=== PATIENT | female | born 1995 | race Caucasian/White ===

== ENCOUNTER → 2016-04-09 | Outpatient (REF) | payer OTHER ==
[~2016-04-09] MED LIST: ACET50TAOT PO; CLEO300C2 PO; IBUP-1114 PO; IBUPOTC PO; KEFL500C7 PO; PERC5TAB6 PO; PRENTAB40 PO
== END ==
LOC: M SFHCLERA 18:59
PROVIDERS: ATTEND Physician Assistant
DX: N10 Acute pyelonephritis (principal)

== ENCOUNTER 2016-04-10 20:54 | Emergency (ER) | payer OTHER ==
[2016-04-10] MEDS ORDERED: MORPHINE 2 MG/ML 1ML SYRINGE As Ordered ONE (22:47)
[2016-04-10 23:01] LABS: BASO # 0.1 K/mm3 (0.0-0.2); BASO % 1.6 % (0.0-1.0); EOS # 0.2 K/mm3 (0.0-0.50); EOS % 2.7 % (0.0-3.0); LARGE UNSTAINED CELL # 0.2 K/mm3 (0.0-0.4); LARGE UNSTAINED CELL % 2.5 % (0.0-4.0); LYMPH # 2.5 K/mm3 (1.5-6.5); LYMPH % 32.3 % (24.0-44.0); MEAN CORPUSCULAR HEMOGLOBIN 25.1 pg (27.0-33.0); MEAN CORPUSCULAR HGB CONC 32.9 g/dl (32.0-36.5); MEAN CORPUSCULAR VOLUME 76.3 fl (80.0-96.0); MONO # 0.4 K/mm3 (0.0-0.8); MONO % 5.6 % (0.0-5.0); NEUTROPHILS % 55.3 % (36.0-66.0); PLATELET COUNT, AUTOMATED 195 k/mm3 (150-450); RED CELL DISTRIBUTION WIDTH 15.7 % (11.5-14.5); WHITE BLOOD COUNT 7.3 K/mm3 (4.0-10.0)
[2016-04-10 23:18] LABS: ANION GAP 8 MEQ/L (8-16); BLOOD UREA NITROGEN 17 MG/DL (7-18); CALCIUM LEVEL 8.7 MG/DL (8.5-10.1); CARBON DIOXIDE LEVEL 26 MEQ/L (21-32); CHLORIDE LEVEL 106 MEQ/L (98-107); CREATININE FOR GFR 0.65 MG/DL (0.55-1.02); GLOMERULAR FILTRATION RATE > 60.0 (>60); GLUCOSE, FASTING 89 MG/DL (70-105); POTASSIUM SERUM 4.3 MEQ/L (3.5-5.1); SODIUM LEVEL 140 MEQ/L (136-145)
[2016-04-10] MEDS ORDERED: KETOROLAC 30 MG/ML VIAL (J1885) As Ordered ONE (23:34)
--- NOTE | 2016-04-11 00:20 | REPUSA ---
CLINICAL HISTORY: Abdominal pain. TECHNIQUE: Multiple axial, sagittal and coronal CT images were obtained through the abdomen and pelvi s without administration of oral or IV contrast material. COMMENTS: The liver is of uniform attenuation without mass or defect. There is no intra or extrahepatic biliary ductal dilatation. The spleen is normal. The gallbladder is within normal limits. The pancreas is of normal contour and attenuation characteristics. There is no evidence of adrenal mass. The kidneys are normal in size, shape and configuration. No renal or ureteral calculi are identified. There is no hydroureter or hydronephrosis. There is no evidence for appendicitis. There is no bowel wall thickening. No evidence for small or la rge bowel obstruction. There is no evidence of abdominal ascites or lymphadenopathy. There is no evidence of intrinsic or extrinsic bladder mass. There is small amount of free pelvic flu id.. Moderate large fecal stasis. Images of the lung bases show no evidence of pleural or parenchymal mass. There are no pleural effusi ons. Small consolidation in the posterior basal segment of the right lower lobe. The bony structures are free of lytic or blastic lesions. Multilevel degenerative changes are seen in volving the thoracolumbar spine. IMPRESSION: Large bowel fecal stasis. Small amount of free fluid in the pelvis. Consolidation in the posterior basal segment of the right lower lobe. Please assess clinically to exc lude mild changes of pneumonia. Thank you for your kind referral of this patient.
[2016-04-11] MEDS ORDERED: CYCLOBENZAPRINE 10 MG TAB As Ordered ONE (00:53)
--- NOTE | 2016-04-11 01:03 | EDDOCDS ---
Physician Documentation [facility] Name: Jane Ann Age: 20 yrs Sex: Female : 1995 Arrival Date: 04/10/2016 Time: 20:54 Bed I7 / 29 Private MD: NO PRIMARY PHYSICIAN, . Disposition: 04/11/16 00:36 Discharged to Home/Self Care. Impression: Lumbago with sciatica, right side, Pneumonia, unspecified organism - possible, right lower lung. - Condition is Stable. - Discharge Instructions: Lumbosacral Radiculopathy, Pneumonia, Adult. - Prescriptions for Cyclobenzaprine 10 mg Oral Tablet - take 1 tablet by ORAL route At bedtime As needed; 10 tablet. ketorolac 10 mg Oral Tablet - take 1 tablet by ORAL route every 6 hours As needed MDD- 40mg. Up to 5 days total use.; 16 tablet. Zithromax Z- Edward 250 mg Oral Tablet - take 1 tablet by ORAL route as directed for 5 days Day 1- take two tablets once. Day 2, 3, 4 , 5 take one tablet once daily.; 6 tablet. - Medication Reconciliation, Local Pharmacy Hours form. - Follow up: Lexis Bullard MD; When: As previously arranged; Reason: Recheck today's complaints, Continuance of care. Follow up: Emergency Department; When: As needed; Reason: Worsening of conditions. - Problem is new. - Symptoms have improved. Historical: - Allergies: Doxycycline; Keflex; Vancomycin; PENICILLINS; - Home Meds: 1. Cipro 250 mg Oral tab 1 tab every 12 hours 2. naproxen 375 mg Oral tab 1 tab 2 times per day 3. Motrin 800mg Oral tab 2 tabs every 6 hours 4. Tylenol 500mg Oral 2 tabs - PMHx: mastitis; - PSHx: ; Tonsillectomy; - Social history: Smoking status: Patient states was never smoker of tobacco. No barriers to communication noted, The patient speaks fluent Thai. - Family history: Not pertinent. - : The pt / caregiver states he / she is not on anticoagulants. Home medication list is obtained from the patient. - Exposure Risk Screening:: None identified. HEAD SAMPLER: 04/10 21:12 2, Living 2, LMP 03/21/2016 [facility] Vital Signs: 20:56 BP 117 / 6; Pulse 73; Resp 18; Temp 97.8; Pulse Ox 100% ; Weight 56.7 kg / 125 lbs; elp Height 5 ft. 2 in. (157.48 cm); Pain 8/10; 22:58 BP 102 / 63; Pulse 64; Resp 16; Temp 98.0(O); Pulse Ox 98% on R/A; Pain 3/10; cp1 04/11 00:45 BP 102 / 56 RA Sitting (auto/reg); Pulse 58 MON; Resp 18 S; Temp 96.9(O); Pulse Ox 98% cln on R/A; Pain 6/10; 04/10 20:56 Body Mass Index 22.86 (56.70 kg, 157.48 cm) elp MDM: 04/10 22:30 IV Saline Lock ordered. ar2 22:30 UCG by Nursing ordered. ar2 22:30 Vital Signs ordered. ar2 22:32 CBC with Diff Ordered. EDMS 22:32 MED Profile Ordered. EDMS 22:32 UA Ordered. EDMS 22:32 Urine Culture Ordered. EDMS 23:11 CBC with Diff Reviewed. ar2 23:11 UA Reviewed. ar2 23:13 ketorolac 15 mg IVP once ordered. ar2 23:14 CT ABD & PELVIS: No Contrast Ordered. EDMS 23:22 MED Profile Reviewed. ar2 04/11 00:39 Cyclobenzaprine 10 mg PO once; disp home with patient ordered. ar2 00:50 Financial registration complete. ks16 00:58 [facility] Payment Agreement was scanned into Wowo and attached to record. gjb Point of Care Testing: Urine : 04/10 22:58 hCG Reading: Negative; Control Reading: Positive; cp1 Ranges: Administered Medications: 22:55 CANCELLED (Patient Refused): morphine 2 mg IVP once ar2 23:37 Drug: ketorolac 15 mg [ketorolac 30 mg/mL (1 mL) injection solution (0.5 mL)] Route: kmg1 IVP; Site: right antecubital; 04/11 01:00 Drug: Cyclobenzaprine 10 mg [cyclobenzaprine 10 mg tablet (1 tabs)] Route: PO; jo3 Signatures: Dispatcher MedHost EDMS Calvillo, Evelyn, RN Guerline Nelson mcp, RN RN jo3 Robertshaw, Aaron, PAZiggy PA-C ar2 Valencia Nelson Kimberly, Reg Reg ks16 Jaz Smith RN kmg1 The chart was reviewed and I authenticate all verbal orders and agree with the evaluation and treatment provided.Corrections: (The following items were deleted from the chart) 04/10 22:55 22:31 morphine 2 mg IVP once ordered. ar2 ar2 22:55 morphine 2 mg IVP once ordered. ar2 ar2 Attachments: 04/11 00:58 [facility] Payment Agreement gloria MTDD
--- NOTE | 2016-04-11 01:03 | EDDOCDS ---
Nurse's Notes [facility] Name: Jane Ann Age: 20 yrs Sex: Female : 1995 Arrival Date: 04/10/2016 Time: 20:54 Bed I7 / 29 Private MD: NO PRIMARY PHYSICIAN, . Diagnosis: Lumbago with sciatica, right side;Pneumonia, unspecified organism-possible, right lower lung Presentation: 04/10 21:09 Presenting complaint: Patient states: Went to Urgent Care yesterday and diagnosed with mcp kidney infection. Placed on Cipro and pain not getting better. Acute neurological deficits are not present. Mechanism of Injury: No Mechanism of Injury. Adult Sepsis Screening: The patient does not have new or worsening altered mentation. Patient's respiratory rate is less than 22. Systolic blood pressure is greater than 100. Patient has a qSOFA score of 0- Negative Sepsis Screen. Suicide/Homicide risk assessment- the patient denies having any suicidal and/or homicidal ideations and does not present with any other emotional, behavioral or mental health complaints. Status: The patient is a dependent. Transition of care: patient was not received from another setting of care. 21:09 Acuity: ASTRID Level 3 [facility] 21:09 Method Of Arrival: Walkin/Carried/Asstd [facility] Triage Assessment: 21:12 General: Appears uncomfortable, Behavior is cooperative. Pain: Location: back Pain mcp currently is 8 out of 10 on a pain scale. HIV screening NA for this visit Offered previously. Neurological: No deficits noted. Respiratory: Airway is patent Respiratory effort is even, unlabored. : Reports pain in bilateral flank(s). Derm: Skin is pink, warm & dry. Musculoskeletal: Circulation, motion, and sensation intact. UX SPECIALIST: 21:12 2, Living 2, LMP 03/21/2016 [facility] Historical: - Allergies: Doxycycline; Keflex; Vancomycin; PENICILLINS; - Home Meds: 1. Cipro 250 mg Oral tab 1 tab every 12 hours 2. naproxen 375 mg Oral tab 1 tab 2 times per day 3. Motrin 800mg Oral tab 2 tabs every 6 hours 4. Tylenol 500mg Oral 2 tabs - PMHx: mastitis; - PSHx: ; Tonsillectomy; - Social history: Smoking status: Patient states was never smoker of tobacco. No barriers to communication noted, The patient speaks fluent Macedonian. - Family history: Not pertinent. - : The pt / caregiver states he / she is not on anticoagulants. Home medication list is obtained from the patient. - Exposure Risk Screening:: None identified. Screenin/08 01:00 Screening information is obtained from the patient. Fall risk: No risks identified. jo3 Assistance ADL's: requires no assistance with activities of daily living. Abuse/DV Screen: The patient / caregiver reports he/she is: not in a situation that causes fear, pain or injury. Nutritional screening: No deficits noted. Advance Directives: There is no active DNR order. home support is adequate. Assessment: 04/10 23:00 General: Appears uncomfortable, Behavior is anxious, crying. Neurological: Level of jo3 Consciousness is awake, alert, Oriented to person, place, time. Cardiovascular: No deficits noted. Respiratory: Airway is patent Respiratory effort is even, unlabored. : Reports pain in right flank(s). Derm: Skin is pink, warm & dry. 04/11 00:05 Reassessment: Patient appears in no apparent distress at this time. Patient states jo3 feeling better. Patient states symptoms have improved. Pt reports slight improvement at this time. Awaiting results at this time. Aware of plan of care . 00:41 General: Appears in no apparent distress, comfortable, Behavior is appropriate for age, jo3 cooperative. General:. Neurological: Level of Consciousness is awake, alert. Respiratory: Airway is patent Respiratory effort is even, unlabored. Derm: Skin is pink, warm & dry. Vital Signs: 04/10 20:56 BP 117 / 6; Pulse 73; Resp 18; Temp 97.8; Pulse Ox 100% ; Weight 56.7 kg; Height 5 ft. elp 2 in. (157.48 cm); Pain 8/10; 22:58 BP 102 / 63; Pulse 64; Resp 16; Temp 98.0(O); Pulse Ox 98% on R/A; Pain 3/10; cp1 04/11 00:45 BP 102 / 56 RA Sitting (auto/reg); Pulse 58 MON; Resp 18 S; Temp 96.9(O); Pulse Ox 98% cln on R/A; Pain 6/10; 04/10 20:56 Body Mass Index 22.86 (56.70 kg, 157.48 cm) elp Vitals: 04/10 20:56 Log In Time: April 10, 2016 at 20:54. elp ED Course: 20:55 Patient visited by Sierra Rodriguez PCA. elp 20:55 NO PRIMARY PHYSICIAN, . is Private Physician. elp 20:55 Patient moved to Waiting elp 20:56 Patient visited by Sierra Rodriguez PCA. elp 20:56 Patient moved to Pre RCE elp 21:10 Triage Initiated mcp 21:13 Patient visited by Evelyn Calvillo RN. mcp 21:53 Patient moved to Triage 2 mcp 22:02 [facility] ar2 22:03 Santos Parker DO is Attending Physician. ar2 22:20 Patient visited by Bandar Alexander PA-C. ar2 22:32 Patient moved to I7 cz 22:56 Patient visited by Indira Diaz LPN. cp1 22:56 Urine Culture Sent. cp1 22:56 UA Sent. cp1 22:56 MED Profile Sent. cp1 22:57 CBC with Diff Sent. cp1 22:57 Inserted saline lock: 20 gauge in right antecubital area and blood collected. The cp1 patient tolerated the procedure well. 23:19 Patient visited by Guerline Macias RN. jo3 04/11 00:21 CT ABD & PELVIS: No Contrast Returned. EDMS 00:31 Patient visited by Indira Diaz LPN. cp1 00:36 Lexis Bullard MD is Referral Physician. ar2 00:40 Patient visited by Guerline Macias RN. jo3 00:46 Patient visited by Beata Bunch PCA. cln 00:58 [facility] Payment Agreement was scanned into Qu[employer] and attached to record. gjb 01:00 The patient / caregiver is instructed regarding the plan of care and ED course. jo3 01:00 Discontinued IV lock intact, bleeding controlled, pressure dressing applied, No jo3 redness/swelling at site. No procedures done that require assistance. Administered Medications: 04/10 22:55 CANCELLED (Patient Refused): morphine 2 mg IVP once ar2 23:37 Drug: ketorolac 15 mg [ketorolac 30 mg/mL (1 mL) injection solution (0.5 mL)] Route: kmg1 IVP; Site: right antecubital; 04/11 01:00 Drug: Cyclobenzaprine 10 mg [cyclobenzaprine 10 mg tablet (1 tabs)] Route: PO; jo3 Point of Care Testing: Urine : 04/10 22:58 hCG Reading: Negative; Control Reading: Positive; cp1 Ranges: Order Results: Lab Order: CBC with Diff; SPEC'M 04/10/16 22:47 Test: WHITE BLOOD COUNT; Value: 7.3; Range: 4.0-10.0; Units: K/mm3; Status: F Test: RED BLOOD COUNT; Value: 4.47; Range: 4.00-5.40; Units: M/mm3; Status: F Test: HEMOGLOBIN; Value: 11.2; Range: 12.0-16.0; Abnormal: Below low normal; Units: g/dl; Status: F Test: HEMATOCRIT; Value: 34.1; Range: 36.0-47.0; Abnormal: Below low normal; Units: %; Status: F Test: MEAN CORPUSCULAR VOLUME; Value: 76.3; Range: 80.0-96.0; Abnormal: Below low normal; Units: fl; Status: F Test: MEAN CORPUSCULAR HEMOGLOBIN; Value: 25.1; Range: 27.0-33.0; Abnormal: Below low normal; Units: pg; Status: F Test: MEAN CORPUSCULAR HGB CONC; Value: 32.9; Range: 32.0-36.5; Units: g/dl; Status: F Test: RED CELL DISTRIBUTION WIDTH; Value: 15.7; Range: 11.5-14.5; Abnormal: Above high normal; Units: %; Status: F Test: PLATELET COUNT, AUTOMATED; Value: 195; Range: 150-450; Units: k/mm3; Status: F Test: NEUTROPHILS %; Value: 55.3; Range: 36.0-66.0; Units: %; Status: F Test: LYMPH %; Value: 32.3; Range: 24.0-44.0; Units: %; Status: F Test: MONO %; Value: 5.6; Range: 0.0-5.0; Abnormal: Above high normal; Units: %; Status: F Test: EOS %; Value: 2.7; Range: 0.0-3.0; Units: %; Status: F Test: BASO %; Value: 1.6; Range: 0.0-1.0; Abnormal: Above high normal; Units: %; Status: F Test: LARGE UNSTAINED CELL %; Value: 2.5; Range: 0.0-4.0; Units: %; Status: F Test: NEUTROPHILS #; Value: 4.0; Range: 1.8-7.7; Units: K/mm3; Status: F Test: LYMPH #; Value: 2.5; Range: 1.5-6.5; Units: K/mm3; Status: F Test: MONO #; Value: 0.4; Range: 0.0-0.8; Units: K/mm3; Status: F Test: EOS #; Value: 0.2; Range: 0.0-0.50; Units: K/mm3; Status: F Test: BASO #; Value: 0.1; Range: 0.0-0.2; Units: K/mm3; Status: F Test: LARGE UNSTAINED CELL #; Value: 0.2; Range: 0.0-0.4; Units: K/mm3; Status: F Lab Order: [facility]; SPEC'M 04/10/16 22:47 Test: GLUCOSE, FASTING; Value: 89; Range: 70-105; Units: MG/DL; Status: F Test: BLOOD UREA NITROGEN; Value: 17; Range: 7-18; Units: MG/DL; Status: F Test: CREATININE FOR GFR; Value: 0.65; Range: 0.55-1.02; Units: MG/DL; Status: F Test: GLOMERULAR FILTRATION RATE; Value: > 60.0; Range: >60; Status: F Test: SODIUM LEVEL; Value: 140; Range: 136-145; Units: MEQ/L; Status: F Test: POTASSIUM SERUM; Value: 4.3; Range: 3.5-5.1; Units: MEQ/L; Status: F Test: CHLORIDE LEVEL; Value: 106; Range: 98-107; Units: MEQ/L; Status: F Test: CARBON DIOXIDE LEVEL; Value: 26; Range: 21-32; Units: MEQ/L; Status: F Test: ANION GAP; Value: 8; Range: 8-16; Units: MEQ/L; Status: F Test: CALCIUM LEVEL; Value: 8.7; Range: 8.5-10.1; Units: MG/DL; Status: F Test Note: ; Units are mL/min/1.73 m2 Chronic Kidney Disease Staging per NKF: Stage I & II GFR >=60 Normal to Mildly Decreased Stage III GFR 30-59 Moderately Decreased Stage IV GFR 15-29 Severely Decreased Stage V GFR <15 Very Little GFR Left ESRD GFR <15 on SHORE WORKER Lab Order: UA; SPEC'M 04/10/16 22:48 Test: APPEARANCE, URINE; Value: CLOUDY; Range: CLEAR; Abnormal: Above high normal; Status: F Test: COLOR, URINE; Value: YELLOW; Range: YELLOW; Status: F Test: PH,URINE; Value: 7.0; Range: 5.0-9.0; Units: UNITS; Status: F Test: SPECIFIC GRAVITY URINE AUTO; Value: 1.020; Range: 1.002-1.035; Status: F Test: PROTEIN, URINE AUTO; Value: NEGATIVE; Range: NEGATIVE; Units: mg/dL; Status: F Test: GLUCOSE, URINE (UA) AUTO; Value: NEGATIVE; Range: NEGATIVE; Units: mg/dL; Status: F Test: KETONE, URINE AUTO; Value: NEGATIVE; Range: NEGATIVE; Units: mg/dL; Status: F Test: UROBILINOGEN, URINE AUTO; Value: 0.2; Range: 0.0-2.0; Units: mg/dL; Status: F Test: BILIRUBIN, URINE AUTO; Value: NEGATIVE; Range: NEGATIVE; Status: F Test: NITRITE, URINE AUTO; Value: NEGATIVE; Range: NEGATIVE; Status: F Test: LEUKOCYTE ESTERASE, URINE AUTO; Value: NEGATIVE; Range: NEGATIVE; Status: F Test: BLOOD, URINE BLOOD; Value: NEGATIVE; Range: NEGATIVE; Status: F Test: WBC, URINE AUTO; Value: 0; Range: 0-3; Units: /HPF; Status: F Test: RBC, URINE AUTO; Value: 0; Range: 0-3; Units: /HPF; Status: F Test: BACTERIA, URINE AUTO; Value: NEGATIVE; Range: NEGATIVE; Status: F Test: SQUAMOUS EPITHELIAL CELL UR AU; Value: 4; Range: 0-6; Units: /HPF; Status: F Test: HYALINE CAST, URINE AUTO; Value: 0; Range: 0-1; Units: /LPF; Status: F Test: AMORPHOUS SEDIMENT; Value: SMALL; Range: NEGATIVE; Abnormal: Above high normal; Status: F Radiology Order: CT ABD & PELVIS: No Contrast Test: CT ABD & PELVIS: No Contrast REASON FOR EXAMINATION: right flank/low back pain; ; CLINICAL HISTORY: Abdominal pain.; TECHNIQUE: Multiple axial, sagittal and coronal CT images were obtained through the abdomen and pelvi; s without administration of oral or IV contrast material.; COMMENTS:; The liver is of uniform attenuation without mass or defect. There is no intra or extrahepatic biliary; ductal dilatation. The spleen is normal. The gallbladder is within normal limits. The pancreas is of; normal contour and attenuation characteristics. There is no evidence of adrenal mass.; The kidneys are normal in size, shape and configuration. No renal or ureteral calculi are identified.; There is no hydroureter or hydronephrosis.; There is no evidence for appendicitis. There is no bowel wall thickening. No evidence for small or la; rge bowel obstruction. There is no evidence of abdominal ascites or lymphadenopathy.; There is no evidence of intrinsic or extrinsic bladder mass. There is small amount of free pelvic flu; id..; Moderate large fecal stasis.; Images of the lung bases show no evidence of pleural or parenchymal mass. There are no pleural effusi; ons. Small consolidation in the posterior basal segment of the right lower lobe.; The bony structures are free of lytic or blastic lesions. Multilevel degenerative changes are seen in; volving the thoracolumbar spine.; IMPRESSION:; Large bowel fecal stasis.; Small amount of free fluid in the pelvis.; Consolidation in the posterior basal segment of the right lower lobe. Please assess clinically to exc; lude mild changes of pneumonia.; Thank you for your kind referral of this patient.; ; Outcome: 04/11 00:36 Discharge ordered by Provider. ar2 01:00 Discharge Assessment: Patient awake, alert and oriented x 3. No cognitive and/or jo3 functional deficits noted. Patient verbalized understanding of disposition instructions. patient administered narcotics - no. The following High Risk Discharge criteria are identified: None. Discharged to home ambulatory. Condition: stable Condition: improved. Instructed on discharge instructions, follow up and referral plans. medication usage, Demonstrated understanding of instructions, medications, Pt was receptive of discharge instructions/ teaching. Prescriptions given X 3. Property sent home with patient. 01:02 CT Study completed. jo3 01:02 Patient left the ED. jo3 Signatures: Dispatcher MedHost EDMS Jaz Smith RN RN kmg1 Evelyn Calvillo RN RN Ryan Hair RN RN cz Helmerci, Jennifer, RN RN jo3 Bandar Alexander, PA-C PA-Bart ar2 Indira Diaz,CIRCUIT TESTER CIRCUIT TESTER cp1 Seirra Rodriguez, BORING INSPECTOR BORING INSPECTOR Valencia Koehler Crystal, BORING INSPECTOR BORING INSPECTOR cln MTDBrittni
--- NOTE | 2016-04-13 12:14 | EDDOCDS ---
Physician Documentation [facility] Name: Jane Ann Age: 20 yrs Sex: Female : 1995 Arrival Date: 04/10/2016 Time: 20:54 Bed I7 / 29 Private MD: NO PRIMARY PHYSICIAN, . Disposition: 04/11/16 00:36 Discharged to Home/Self Care. Impression: Lumbago with sciatica, right side, Pneumonia, unspecified organism - possible, right lower lung. - Condition is Stable. - Discharge Instructions: Lumbosacral Radiculopathy, Pneumonia, Adult. - Prescriptions for Cyclobenzaprine 10 mg Oral Tablet - take 1 tablet by ORAL route At bedtime As needed; 10 tablet. ketorolac 10 mg Oral Tablet - take 1 tablet by ORAL route every 6 hours As needed MDD- 40mg. Up to 5 days total use.; 16 tablet. Zithromax Z- Edward 250 mg Oral Tablet - take 1 tablet by ORAL route as directed for 5 days Day 1- take two tablets once. Day 2, 3, 4 , 5 take one tablet once daily.; 6 tablet. - Medication Reconciliation, Local Pharmacy Hours form. - Follow up: Lexis Bullard MD; When: As previously arranged; Reason: Recheck today's complaints, Continuance of care. Follow up: Emergency Department; When: As needed; Reason: Worsening of conditions. - Problem is new. - Symptoms have improved. Historical: - Allergies: Doxycycline; Keflex; Vancomycin; PENICILLINS; - Home Meds: 1. Cipro 250 mg Oral tab 1 tab every 12 hours 2. naproxen 375 mg Oral tab 1 tab 2 times per day 3. Motrin 800mg Oral tab 2 tabs every 6 hours 4. Tylenol 500mg Oral 2 tabs - PMHx: mastitis; - PSHx: ; Tonsillectomy; - Social history: Smoking status: Patient states was never smoker of tobacco. No barriers to communication noted, The patient speaks fluent Indonesian. - Family history: Not pertinent. - : The pt / caregiver states he / she is not on anticoagulants. Home medication list is obtained from the patient. - Exposure Risk Screening:: None identified. DOBIE MAN: 04/10 21:12 2, Living 2, LMP 03/21/2016 [facility] Vital Signs: 20:56 BP 117 / 6; Pulse 73; Resp 18; Temp 97.8; Pulse Ox 100% ; Weight 56.7 kg / 125 lbs; elp Height 5 ft. 2 in. (157.48 cm); Pain 8/10; 22:58 BP 102 / 63; Pulse 64; Resp 16; Temp 98.0(O); Pulse Ox 98% on R/A; Pain 3/10; cp1 04/11 00:45 BP 102 / 56 RA Sitting (auto/reg); Pulse 58 MON; Resp 18 S; Temp 96.9(O); Pulse Ox 98% cln on R/A; Pain 6/10; 04/10 20:56 Body Mass Index 22.86 (56.70 kg, 157.48 cm) elp MDM: 04/10 22:30 IV Saline Lock ordered. ar2 22:30 UCG by Nursing ordered. ar2 22:30 Vital Signs ordered. ar2 22:32 CBC with Diff Ordered. EDMS 22:32 MED Profile Ordered. EDMS 22:32 UA Ordered. EDMS 22:32 Urine Culture Ordered. EDMS 23:11 CBC with Diff Reviewed. ar2 23:11 UA Reviewed. ar2 23:13 ketorolac 15 mg IVP once ordered. ar2 23:14 CT ABD & PELVIS: No Contrast Ordered. EDMS 23:22 MED Profile Reviewed. ar2 04/11 00:39 Cyclobenzaprine 10 mg PO once; disp home with patient ordered. ar2 00:50 Financial registration complete. ks16 00:58 [facility] Payment Agreement was scanned into kaufDA and attached to record. gjb 08:14 T-Sheet-- Draft Copy was scanned into kaufDA and attached to record. se 10:41 Radiology Report was scanned into kaufDA and attached to record. gb Point of Care Testing: Urine : 04/10 22:58 hCG Reading: Negative; Control Reading: Positive; cp1 Ranges: Administered Medications: 22:55 CANCELLED (Patient Refused): morphine 2 mg IVP once ar2 23:37 Drug: ketorolac 15 mg [ketorolac 30 mg/mL (1 mL) injection solution (0.5 mL)] Route: kmg1 IVP; Site: right antecubital; 04/11 01:00 Drug: Cyclobenzaprine 10 mg [cyclobenzaprine 10 mg tablet (1 tabs)] Route: PO; jo3 Signatures: Dispatcher MedHost Evelyn Luque RN RN [facility] Sinyd Hamilton, Reg Reg Guerline Singleton RN RN jo3 Bandar Alexander PA-C PA-C ar2 Valencia Nelson gjCourtney Abbott, Reg Reg nv16 Edu, Jaz Pearson RN kmg1 The chart was reviewed and I authenticate all verbal orders and agree with the evaluation and treatment provided.Corrections: (The following items were deleted from the chart) 04/10 22:55 22:31 morphine 2 mg IVP once ordered. ar2 ar2 22:55 22:55 morphine 2 mg IVP once ordered. jimi2 jimi2 Attachments: 04/11 00:58 [facility] Payment Agreement gjb 08:14 T-Sheet-- Draft Copy [facility] Chart Complete MTDD
--- NOTE | 2016-04-13 12:14 | EDDOCDS ---
Nurse's Notes [facility] Name: Jane Ann Age: 20 yrs Sex: Female : 1995 Arrival Date: 04/10/2016 Time: 20:54 Bed I7 / 29 Private MD: NO PRIMARY PHYSICIAN, . Diagnosis: Lumbago with sciatica, right side;Pneumonia, unspecified organism-possible, right lower lung Presentation: 04/10 21:09 Presenting complaint: Patient states: Went to Urgent Care yesterday and diagnosed with mcp kidney infection. Placed on Cipro and pain not getting better. Acute neurological deficits are not present. Mechanism of Injury: No Mechanism of Injury. Adult Sepsis Screening: The patient does not have new or worsening altered mentation. Patient's respiratory rate is less than 22. Systolic blood pressure is greater than 100. Patient has a qSOFA score of 0- Negative Sepsis Screen. Suicide/Homicide risk assessment- the patient denies having any suicidal and/or homicidal ideations and does not present with any other emotional, behavioral or mental health complaints. Status: The patient is a dependent. Transition of care: patient was not received from another setting of care. 21:09 Acuity: ASTRID Level 3 [facility] 21:09 Method Of Arrival: Walkin/Carried/Asstd [facility] Triage Assessment: 21:12 General: Appears uncomfortable, Behavior is cooperative. Pain: Location: back Pain mcp currently is 8 out of 10 on a pain scale. HIV screening NA for this visit Offered previously. Neurological: No deficits noted. Respiratory: Airway is patent Respiratory effort is even, unlabored. : Reports pain in bilateral flank(s). Derm: Skin is pink, warm & dry. Musculoskeletal: Circulation, motion, and sensation intact. COMPLETIONS MANAGER: 21:12 2, Living 2, LMP 03/21/2016 [facility] Historical: - Allergies: Doxycycline; Keflex; Vancomycin; PENICILLINS; - Home Meds: 1. Cipro 250 mg Oral tab 1 tab every 12 hours 2. naproxen 375 mg Oral tab 1 tab 2 times per day 3. Motrin 800mg Oral tab 2 tabs every 6 hours 4. Tylenol 500mg Oral 2 tabs - PMHx: mastitis; - PSHx: ; Tonsillectomy; - Social history: Smoking status: Patient states was never smoker of tobacco. No barriers to communication noted, The patient speaks fluent Estonian. - Family history: Not pertinent. - : The pt / caregiver states he / she is not on anticoagulants. Home medication list is obtained from the patient. - Exposure Risk Screening:: None identified. Screenin/08 01:00 Screening information is obtained from the patient. Fall risk: No risks identified. jo3 Assistance ADL's: requires no assistance with activities of daily living. Abuse/DV Screen: The patient / caregiver reports he/she is: not in a situation that causes fear, pain or injury. Nutritional screening: No deficits noted. Advance Directives: There is no active DNR order. home support is adequate. Assessment: 04/10 23:00 General: Appears uncomfortable, Behavior is anxious, crying. Neurological: Level of jo3 Consciousness is awake, alert, Oriented to person, place, time. Cardiovascular: No deficits noted. Respiratory: Airway is patent Respiratory effort is even, unlabored. : Reports pain in right flank(s). Derm: Skin is pink, warm & dry. 04/11 00:05 Reassessment: Patient appears in no apparent distress at this time. Patient states jo3 feeling better. Patient states symptoms have improved. Pt reports slight improvement at this time. Awaiting results at this time. Aware of plan of care . 00:41 General: Appears in no apparent distress, comfortable, Behavior is appropriate for age, jo3 cooperative. General:. Neurological: Level of Consciousness is awake, alert. Respiratory: Airway is patent Respiratory effort is even, unlabored. Derm: Skin is pink, warm & dry. Vital Signs: 04/10 20:56 BP 117 / 6; Pulse 73; Resp 18; Temp 97.8; Pulse Ox 100% ; Weight 56.7 kg; Height 5 ft. elp 2 in. (157.48 cm); Pain 8/10; 22:58 BP 102 / 63; Pulse 64; Resp 16; Temp 98.0(O); Pulse Ox 98% on R/A; Pain 3/10; cp1 04/11 00:45 BP 102 / 56 RA Sitting (auto/reg); Pulse 58 MON; Resp 18 S; Temp 96.9(O); Pulse Ox 98% cln on R/A; Pain 6/10; 04/10 20:56 Body Mass Index 22.86 (56.70 kg, 157.48 cm) [facility] Vitals: 04/10 20:56 Log In Time: April 10, 2016 at 20:54. elp ED Course: 20:55 Patient visited by Sierra Rodriguez PCA. elp 20:55 NO PRIMARY PHYSICIAN, . is Private Physician. elp 20:55 Patient moved to Waiting elp 20:56 Patient visited by Sierra Rodriguez PCA. elp 20:56 Patient moved to Pre RCE elp 21:10 Triage Initiated mcp 21:13 Patient visited by Evelyn Calvillo RN. mcp 21:53 Patient moved to Triage 2 mcp 22:02 [facility] ar2 22:03 Santos Parker DO is Attending Physician. ar2 22:20 Patient visited by Bandar Alexnader PA-C. ar2 22:32 Patient moved to I7 cz 22:56 Patient visited by Indira Diaz LPN. cp1 22:56 Urine Culture Sent. cp1 22:56 UA Sent. cp1 22:56 MED Profile Sent. cp1 22:57 CBC with Diff Sent. cp1 22:57 Inserted saline lock: 20 gauge in right antecubital area and blood collected. The cp1 patient tolerated the procedure well. 23:19 Patient visited by Guerline Macias RN. jo3 04/11 00:21 CT ABD & PELVIS: No Contrast Returned. EDMS 00:31 Patient visited by Indira Diaz LPN. cp1 00:36 Lexis Bullard MD is Referral Physician. ar2 00:40 Patient visited by Guerline Macias RN. jo3 00:46 Patient visited by Beata Bunch PCA. cln 00:58 [facility] Payment Agreement was scanned into [employer] and attached to record. gjb 01:00 The patient / caregiver is instructed regarding the plan of care and ED course. jo3 01:00 Discontinued IV lock intact, bleeding controlled, pressure dressing applied, No jo3 redness/swelling at site. No procedures done that require assistance. 08:14 T-Sheet-- Draft Copy was scanned into [employer] and attached to record. seh 10:41 Radiology Report was scanned into [employer] and attached to record. gb Administered Medications: 04/10 22:55 CANCELLED (Patient Refused): morphine 2 mg IVP once ar2 23:37 Drug: ketorolac 15 mg [ketorolac 30 mg/mL (1 mL) injection solution (0.5 mL)] Route: kmg1 IVP; Site: right antecubital; 04/11 01:00 Drug: Cyclobenzaprine 10 mg [cyclobenzaprine 10 mg tablet (1 tabs)] Route: PO; jo3 Point of Care Testing: Urine : 04/10 22:58 hCG Reading: Negative; Control Reading: Positive; cp1 Ranges: Order Results: Lab Order: CBC with Diff; SPEC'M 04/10/16 22:47 Test: WHITE BLOOD COUNT; Value: 7.3; Range: 4.0-10.0; Units: K/mm3; Status: F Test: RED BLOOD COUNT; Value: 4.47; Range: 4.00-5.40; Units: M/mm3; Status: F Test: HEMOGLOBIN; Value: 11.2; Range: 12.0-16.0; Abnormal: Below low normal; Units: g/dl; Status: F Test: HEMATOCRIT; Value: 34.1; Range: 36.0-47.0; Abnormal: Below low normal; Units: %; Status: F Test: MEAN CORPUSCULAR VOLUME; Value: 76.3; Range: 80.0-96.0; Abnormal: Below low normal; Units: fl; Status: F Test: MEAN CORPUSCULAR HEMOGLOBIN; Value: 25.1; Range: 27.0-33.0; Abnormal: Below low normal; Units: pg; Status: F Test: MEAN CORPUSCULAR HGB CONC; Value: 32.9; Range: 32.0-36.5; Units: g/dl; Status: F Test: RED CELL DISTRIBUTION WIDTH; Value: 15.7; Range: 11.5-14.5; Abnormal: Above high normal; Units: %; Status: F Test: PLATELET COUNT, AUTOMATED; Value: 195; Range: 150-450; Units: k/mm3; Status: F Test: NEUTROPHILS %; Value: 55.3; Range: 36.0-66.0; Units: %; Status: F Test: LYMPH %; Value: 32.3; Range: 24.0-44.0; Units: %; Status: F Test: MONO %; Value: 5.6; Range: 0.0-5.0; Abnormal: Above high normal; Units: %; Status: F Test: EOS %; Value: 2.7; Range: 0.0-3.0; Units: %; Status: F Test: BASO %; Value: 1.6; Range: 0.0-1.0; Abnormal: Above high normal; Units: %; Status: F Test: LARGE UNSTAINED CELL %; Value: 2.5; Range: 0.0-4.0; Units: %; Status: F Test: NEUTROPHILS #; Value: 4.0; Range: 1.8-7.7; Units: K/mm3; Status: F Test: LYMPH #; Value: 2.5; Range: 1.5-6.5; Units: K/mm3; Status: F Test: MONO #; Value: 0.4; Range: 0.0-0.8; Units: K/mm3; Status: F Test: EOS #; Value: 0.2; Range: 0.0-0.50; Units: K/mm3; Status: F Test: BASO #; Value: 0.1; Range: 0.0-0.2; Units: K/mm3; Status: F Test: LARGE UNSTAINED CELL #; Value: 0.2; Range: 0.0-0.4; Units: K/mm3; Status: F Lab Order: [facility]; [facility] 04/10/16 22:47 Test: GLUCOSE, FASTING; Value: 89; Range: 70-105; Units: MG/DL; Status: F Test: BLOOD UREA NITROGEN; Value: 17; Range: 7-18; Units: MG/DL; Status: F Test: CREATININE FOR GFR; Value: 0.65; Range: 0.55-1.02; Units: MG/DL; Status: F Test: GLOMERULAR FILTRATION RATE; Value: > 60.0; Range: >60; Status: F Test: SODIUM LEVEL; Value: 140; Range: 136-145; Units: MEQ/L; Status: F Test: POTASSIUM SERUM; Value: 4.3; Range: 3.5-5.1; Units: MEQ/L; Status: F Test: CHLORIDE LEVEL; Value: 106; Range: 98-107; Units: MEQ/L; Status: F Test: CARBON DIOXIDE LEVEL; Value: 26; Range: 21-32; Units: MEQ/L; Status: F Test: ANION GAP; Value: 8; Range: 8-16; Units: MEQ/L; Status: F Test: CALCIUM LEVEL; Value: 8.7; Range: 8.5-10.1; Units: MG/DL; Status: F Test Note: ; Units are mL/min/1.73 m2 Chronic Kidney Disease Staging per NKF: Stage I & II GFR >=60 Normal to Mildly Decreased Stage III GFR 30-59 Moderately Decreased Stage IV GFR 15-29 Severely Decreased Stage V GFR <15 Very Little GFR Left ESRD GFR <15 on [employer] Lab Order: UA; SPEC'M 04/10/16 22:48 Test: APPEARANCE, URINE; Value: CLOUDY; Range: CLEAR; Abnormal: Above high normal; Status: F Test: COLOR, URINE; Value: YELLOW; Range: YELLOW; Status: F Test: PH,URINE; Value: 7.0; Range: 5.0-9.0; Units: UNITS; Status: F Test: SPECIFIC GRAVITY URINE AUTO; Value: 1.020; Range: 1.002-1.035; Status: F Test: PROTEIN, URINE AUTO; Value: NEGATIVE; Range: NEGATIVE; Units: mg/dL; Status: F Test: GLUCOSE, URINE (UA) AUTO; Value: NEGATIVE; Range: NEGATIVE; Units: mg/dL; Status: F Test: KETONE, URINE AUTO; Value: NEGATIVE; Range: NEGATIVE; Units: mg/dL; Status: F Test: UROBILINOGEN, URINE AUTO; Value: 0.2; Range: 0.0-2.0; Units: mg/dL; Status: F Test: BILIRUBIN, URINE AUTO; Value: NEGATIVE; Range: NEGATIVE; Status: F Test: NITRITE, URINE AUTO; Value: NEGATIVE; Range: NEGATIVE; Status: F Test: LEUKOCYTE ESTERASE, URINE AUTO; Value: NEGATIVE; Range: NEGATIVE; Status: F Test: BLOOD, URINE BLOOD; Value: NEGATIVE; Range: NEGATIVE; Status: F Test: WBC, URINE AUTO; Value: 0; Range: 0-3; Units: /HPF; Status: F Test: RBC, URINE AUTO; Value: 0; Range: 0-3; Units: /HPF; Status: F Test: BACTERIA, URINE AUTO; Value: NEGATIVE; Range: NEGATIVE; Status: F Test: SQUAMOUS EPITHELIAL CELL UR AU; Value: 4; Range: 0-6; Units: /HPF; Status: F Test: HYALINE CAST, URINE AUTO; Value: 0; Range: 0-1; Units: /LPF; Status: F Test: AMORPHOUS SEDIMENT; Value: SMALL; Range: NEGATIVE; Abnormal: Above high normal; Status: F Lab Order: Urine Culture; SPEC'M 04/10/16 22:47 Test: URINE CULTURE; Value: URINE CULTURE RESULT NO GROWTH; Status: F Radiology Order: CT ABD & PELVIS: No Contrast Test: CT ABD & PELVIS: No Contrast REASON FOR EXAMINATION: right flank/low back pain; ; CLINICAL HISTORY: Abdominal pain.; TECHNIQUE: Multiple axial, sagittal and coronal CT images were obtained through the abdomen and pelvi; s without administration of oral or IV contrast material.; COMMENTS:; The liver is of uniform attenuation without mass or defect. There is no intra or extrahepatic biliary; ductal dilatation. The spleen is normal. The gallbladder is within normal limits. The pancreas is of; normal contour and attenuation characteristics. There is no evidence of adrenal mass.; The kidneys are normal in size, shape and configuration. No renal or ureteral calculi are identified.; There is no hydroureter or hydronephrosis.; There is no evidence for appendicitis. There is no bowel wall thickening. No evidence for small or la; rge bowel obstruction. There is no evidence of abdominal ascites or lymphadenopathy.; There is no evidence of intrinsic or extrinsic bladder mass. There is small amount of free pelvic flu; id..; Moderate large fecal stasis.; Images of the lung bases show no evidence of pleural or parenchymal mass. There are no pleural effusi; ons. Small consolidation in the posterior basal segment of the right lower lobe.; The bony structures are free of lytic or blastic lesions. Multilevel degenerative changes are seen in; volving the thoracolumbar spine.; IMPRESSION:; Large bowel fecal stasis.; Small amount of free fluid in the pelvis.; Consolidation in the posterior basal segment of the right lower lobe. Please assess clinically to exc; lude mild changes of pneumonia.; Thank you for your kind referral of this patient.; ; Outcome: 04/11 00:36 Discharge ordered by Provider. ar2 01:00 Discharge Assessment: Patient awake, alert and oriented x 3. No cognitive and/or jo3 functional deficits noted. Patient verbalized understanding of disposition instructions. patient administered narcotics - no. The following High Risk Discharge criteria are identified: None. Discharged to home ambulatory. Condition: stable Condition: improved. Instructed on discharge instructions, follow up and referral plans. medication usage, Demonstrated understanding of instructions, medications, Pt was receptive of discharge instructions/ teaching. Prescriptions given X 3. Property sent home with patient. 01:02 CT Study completed. jo3 01:02 Patient left the ED. jo3 Signatures: Dispatcher [employer] EDMS Jaz Smith, RN RN kmg1 Evelyn Calvillo RN RN Ryan Hair, VIOLET RN cz Sindy Hamilton, Ju[place]ino Reg Guerline SingletonRN RN jo3 Bandar Alexander, PA-C PA-C ar2 Indira Diaz,CARMELO MATUTEN cp1 Sierra Rodriguez, TEACHING PASTOR TEACHING PASTOR Valencia Koehler Crystal, TEACHING PASTOR TEACHING PASTOR Kerry Calixto Chart Complete DEBBIE
--- NOTE | 2016-04-13 12:14 | EDDOCDS ---
Physician Documentation [facility] Name: Jane Ann Age: 20 yrs Sex: Female : 1995 Arrival Date: 04/10/2016 Time: 20:54 Bed I7 / 29 Private MD: NO PRIMARY PHYSICIAN, . Disposition: 04/11/16 00:36 Discharged to Home/Self Care. Impression: Lumbago with sciatica, right side, Pneumonia, unspecified organism - possible, right lower lung. - Condition is Stable. - Discharge Instructions: Lumbosacral Radiculopathy, Pneumonia, Adult. - Prescriptions for Cyclobenzaprine 10 mg Oral Tablet - take 1 tablet by ORAL route At bedtime As needed; 10 tablet. ketorolac 10 mg Oral Tablet - take 1 tablet by ORAL route every 6 hours As needed MDD- 40mg. Up to 5 days total use.; 16 tablet. Zithromax Z- Edward 250 mg Oral Tablet - take 1 tablet by ORAL route as directed for 5 days Day 1- take two tablets once. Day 2, 3, 4 , 5 take one tablet once daily.; 6 tablet. - Medication Reconciliation, Local Pharmacy Hours form. - Follow up: Lexis Bullard MD; When: As previously arranged; Reason: Recheck today's complaints, Continuance of care. Follow up: Emergency Department; When: As needed; Reason: Worsening of conditions. - Problem is new. - Symptoms have improved. Historical: - Allergies: Doxycycline; Keflex; Vancomycin; PENICILLINS; - Home Meds: 1. Cipro 250 mg Oral tab 1 tab every 12 hours 2. naproxen 375 mg Oral tab 1 tab 2 times per day 3. Motrin 800mg Oral tab 2 tabs every 6 hours 4. Tylenol 500mg Oral 2 tabs - PMHx: mastitis; - PSHx: ; Tonsillectomy; - Social history: Smoking status: Patient states was never smoker of tobacco. No barriers to communication noted, The patient speaks fluent Serbian. - Family history: Not pertinent. - : The pt / caregiver states he / she is not on anticoagulants. Home medication list is obtained from the patient. - Exposure Risk Screening:: None identified. BOW STAPLER: 04/10 21:12 2, Living 2, LMP 03/21/2016 [facility] Vital Signs: 20:56 BP 117 / 6; Pulse 73; Resp 18; Temp 97.8; Pulse Ox 100% ; Weight 56.7 kg / 125 lbs; elp Height 5 ft. 2 in. (157.48 cm); Pain 8/10; 22:58 BP 102 / 63; Pulse 64; Resp 16; Temp 98.0(O); Pulse Ox 98% on R/A; Pain 3/10; cp1 04/11 00:45 BP 102 / 56 RA Sitting (auto/reg); Pulse 58 MON; Resp 18 S; Temp 96.9(O); Pulse Ox 98% cln on R/A; Pain 6/10; 04/10 20:56 Body Mass Index 22.86 (56.70 kg, 157.48 cm) elp MDM: 04/10 22:30 IV Saline Lock ordered. ar2 22:30 UCG by Nursing ordered. ar2 22:30 Vital Signs ordered. ar2 22:32 CBC with Diff Ordered. EDMS 22:32 MED Profile Ordered. EDMS 22:32 UA Ordered. EDMS 22:32 Urine Culture Ordered. EDMS 23:11 CBC with Diff Reviewed. ar2 23:11 UA Reviewed. ar2 23:13 ketorolac 15 mg IVP once ordered. ar2 23:14 CT ABD & PELVIS: No Contrast Ordered. EDMS 23:22 MED Profile Reviewed. ar2 04/11 00:39 Cyclobenzaprine 10 mg PO once; disp home with patient ordered. ar2 00:50 Financial registration complete. ks16 00:58 [facility] Payment Agreement was scanned into [employer] and attached to record. gjb 08:14 T-Sheet-- Draft Copy was scanned into [employer] and attached to record. se 10:41 Radiology Report was scanned into [employer] and attached to record. gb Point of Care Testing: Urine : 04/10 22:58 hCG Reading: Negative; Control Reading: Positive; cp1 Ranges: Administered Medications: 22:55 CANCELLED (Patient Refused): morphine 2 mg IVP once ar2 23:37 Drug: ketorolac 15 mg [ketorolac 30 mg/mL (1 mL) injection solution (0.5 mL)] Route: kmg1 IVP; Site: right antecubital; 04/11 01:00 Drug: Cyclobenzaprine 10 mg [cyclobenzaprine 10 mg tablet (1 tabs)] Route: PO; jo3 Signatures: Dispatcher [employer] Evelyn Luque RN RN [facility] Sindy Hamilton, Reg Reg Guerline Singleton RN RN jo3 Bandar Alexander PA-C PA-C ar2 Valencia Nelson gjCourtney Abbott, Reg Reg [id number] Edu, Jaz Pearson RN kmg1 The chart was reviewed and I authenticate all verbal orders and agree with the evaluation and treatment provided.Corrections: (The following items were deleted from the chart) 04/10 22:55 22:31 morphine 2 mg IVP once ordered. ar2 ar2 22:55 22:55 morphine 2 mg IVP once ordered. [email or web address] [email or web address] Attachments: 04/11 00:58 [facility] Payment Agreement gjb 08:14 T-Sheet-- Draft Copy [facility] Chart Complete MTDD
== END 2016-04-11 01:02 | disposition home or self-care (01) ==
LOC: M ED 20:54
DX: M54.41 Lumbago with sciatica, right side (principal); Z87.2 Personal history of diseases of the skin and subcutaneous tissue; Z79.899 Other long term (current) drug therapy; Z88.0 Allergy status to penicillin; Z88.1 Allergy status to other antibiotic agents
CPT/HCPCS: 36415; 74176; 80048; 81001; 81025; 85025; 87086; 96374; 99284; J1885

== ENCOUNTER → 2016-04-22 | Outpatient (CLI) | payer OTHER | LOC: M LAB 13:03 | PROVIDERS: ATTEND Family Medicine | DX: R94.6 Abnormal results of thyroid function studies (principal) ==

== ENCOUNTER → 2016-08-04 | Outpatient (CLI) | payer OTHER ==
--- NOTE | 2016-08-05 03:02 | REP ---
Clinical: Pain. Technique: Cephalic angled, caudal angled, and lateral views of the sacrum and coccyx. Findings: Sacroiliac joints appear intact and normal. The sacrum appears intact and normal. There is an acute angulation at the sacrococcygeal articulation on lateral radiograph which may represent prior injury. No obvious acute fracture. Impression: As above. Correlation with prior injury may be warranted. Signed by Gordo Alvarez MD 08/05/2016 02:53 A
== END ==
LOC: M RAD 12:29
PROVIDERS: ATTEND Family Medicine
DX: M53.3 Sacrococcygeal disorders, not elsewhere classified (principal)

== ENCOUNTER → 2016-11-05 | Outpatient (CLI) | payer OTHER ==
[~2016-11-05] MED LIST changes: +KEFL500C17 PO; -KEFL500C7 PO; +PERC5TAB12 PO; -PERC5TAB6 PO
--- NOTE | 2016-11-26 01:32 | ECWPNPC ---
PATIENT NAME: MAYLIN BELTRAN : 1995 GENDER: FEMALE VISIT DATE: 11/05/2016 DISCHARGE DATE: 11/05/16 1438 VISIT LOCKED DATE TIME: PHYSICIAN: DASH SCALES RESOURCE: DASH SCALES HISTORY OF PRESENT ILLNESS NEW PATIENT CONSULT: WHEN DID YOUR PAIN FIRST START? . BRIEFLY DESCRIBE HOW YOUR PAIN STARTED? . HOW DOES YOUR PAIN CHANGE WITH TIME? . DOES YOUR PAIN AWAKEN YOU FROM SLEEP? . HOW MANY HOURS OF SLEEP DO YOU NORMALLY GET? . ANY DIAGNOSTIC TESTING? . FACILITY WHERE TESTS WERE DONE? ____. PAIN TREATMENT TREATMENT YES CANCER HAVE YOU EVER HAD ANY TYPE OF CANCER?NO NO. PAIN SCREENING: PATIENT HAS A COMPLAINT OF ACUTE OR CHRONIC PAIN :YES FALL RISK SCREENING: SCREENING :NO FALLS IN THE PAST YEAR DANIEL INVENTORY: QUESTIONNAIRE ASSESSEDYES SCORE VALUE CALCULATED YES SCORE: 14/63 DENIES SUICIDAL OR HOMICIDAL IDEATION TODAY'S VISIT: NOTES: [facility] DR [facility] FOR PERSISTANT RIGHT GROIN /PELVIC AREA PAIN. HAD NO PAIN PRIOR TO SURGERY. PAIN IS INTERMITTANT, RIGHT SIDED ONLY. PAIN CAN BE SHOOTING IN RIGHT LQ. CERTAIN LIFTING TWISTING MOTIONS CAN AGGRAVATE IT. AREA CAN THROB AND CAN CAUSE ACHE INTO ENTIRE RIGHT LEG. NO N IN LEG. IS N AROUND SCAR. NO INJECTIONS DONE. NO MEDS TRIED. HAS HISTORY OF TAILBONE PAIN WHICH HAS NOT CHANGED.. CURRENT MEDICATIONS TAKING XANAX 1 MG TABLET 1 TABLET ORALLY ONCE A DAY NEEDED TAKING AMBIEN 5 MG TABLET 1 TABLET AT BEDTIME ORALLY ONCE A DAY NOT-TAKING CIPRO 250 MG TABLET 1 TABLET ORALLY EVERY 12 HRS NOT-TAKING EC-NAPROSYN 375 MG TABLET DELAYED RELEASE 1 TABLET ORALLY TWICE A DAY MEDICATION LIST REVIEWED AND RECONCILED WITH THE PATIENT PAST MEDICAL HISTORY PALPITATIONS ASTHMA KIDNEY STONES KIDNEY INFECTIONS EPILEPSEY ANXIETY ALLERGIES PENICILLIN (FOR ALLERGIES USE ONLY): HIVES: ALLERGY AMOXICILLIN: HIVES: ALLERGY KEFLEX: HIVES: ALLERGY SURGICAL HISTORY 11/04/15 TONSILLECTOMY 1998 WISDOM TEETH REMOVED 2011 FAMILY HISTORY FATHER: UNKNOWN MOTHER: ALIVE 1 BROTHER(S) , 1 SISTER(S) - HEALTHY. 2DAUGHTER(S) - HEALTHY. SOCIAL HISTORY GENERAL: TOBACCO USE ARE YOU A:NONSMOKER RECREATIONAL DRUG USE DRUG USE?NO OCCUPATION: UNEMPLOYED. MARITAL STATUS: . ORTHODOXY [id number] NONE LANGUAGE LANGUAGES SPOKEN:BARBADIAN LEARNING BARRIERS / SPECIAL NEEDS BARRIERS TO LEARNING?NO HEARING IMPAIRED?NO VISION IMPAIRED?NO COGNITIVELY IMPAIRED?NO READINESS TO LEARN?YES LEARNING PREFERENCES?NO LEARNING CAPABILITIES PRESENT?YES EMOTIONAL BARRIERS?NO SPECIAL DEVICES?NO AIR BRAKE WORKER NEEDED?NO PAIN CLINIC PFS, CLERGY, PUBLIC HEALTH REFERRALS PFS REFERRAL NEEDED?NO CLERGY REFERRAL NEEDED?NO PUBLIC HEALTH REFERRAL NEEDED?NO WAS THE PROVIDER NOTIFIED OF ANY PERTINENT INFO?NO HAS THE PATIENT BEEN EDUCATED REGARDING HIS/HER PLAN OF CARE?YES HAS THE PATIENT BEEN EDUCATED REGARDING PAIN, THE RISK FOR PAIN, THE IMPORTANCE OF EFFECTIVE PAIN MANAGEMENT, AND THE PAIN ASSESSMENT PROCESS?YES PATIENT: ____. [facility]VANCE DIRECTIVES HEALTH CARE PROXY?NO WOULD YOU LIKE MORE INFORMATION?NO DO YOU HAVE A DNR?NO WOULD YOU LIKE MORE INFORMATION?NO LIVING WILL?NO WOULD YOU LIKE MORE INFORMATION?NO POWER OF SECURITY SYSTEM ENGINEER?NO WOULD YOU LIKE MORE INFORMATION?NO REVIEW OF SYSTEMS FOLLOW-UP ROS: PSYCHOLOGY: POSITIVE FOR, ANXIETY FOR ANXIETY . REVIEWED BY: PROVIDER: . CONSTITUTIONAL: ANY CHANGE IN YOUR MEDICAL CONDITION? NO . CHILLS NO . FEVER NO . INFECTION: DO YOU HAVE NEW INFECTIONS? NO . DO YOU HAVE HISTORY OF MRSA? NO . MUSCULOSKELETAL: ANY NEW PATTERNS OF PAIN OR NUMBNESS? NO . SYTEMIC LUPUS NO . GASTROENTEROLOGY: GENERAL ALT LOOSE AND CONSTIPATED STOOLS . ANY NEW CHANGE IN BOWEL CONTROL? NO . BARRETTS ESOPHAGUS NO . CIRRHOSIS NO . HEPATITIS NO . LIVER FAILURE NO . ACID REFLUX NO . UNEXPLAINED WEIGHT LOSS NO . GENITOURINARY: ANY NEW CHANGE IN BLADDER CONTROL? NO . IS THERE A CHANCE YOU COULD BE ? NO . HEMATOLOGY/LYMPH: DO YOU TAKE ANY BLOOD THINNERS? (FOR EXAMPLE- COUMADIN, PLAVIX, AGGRENOX, PLATEL, PRADAXA, OR XARELTO) NO . WHEN WAS YOUR LAST DOSE? DATE: TIME: . LOW PLATELET COUNT NO . SICKLE CELL DISEASE NO . VON WILLIEBRANDS NO . FACTOR V LEIDEN NO . THALLASEMIA NO . ANEMIA NO . EASY BRUISING NO . NEUROLOGY: HAVE YOU FALLEN IN THE PAST 6 MONTHS? NO . ANY NEW EXTREMITY NUMBNESS OR WEAKNESS? NO . HEAD INJURY NO . DEMENTIA NO . CEREBRAL PALSY NO . MULTIPLE SCLEROSIS NO . DIZZINESS NO . HEADACHE NO . STROKES NO . VERTIGO NO . CARDIOLOGY: DO YOU HAVE A PACEMAKER OR DEFIBRILLATOR? NO . ANGINA NO . HEART ATTACK NO . HEART SURGERY NO . CONGESTIVE HEART FAILURE/FLUID OVERLOAD NO . CHEST PAIN NO . HIGH BLOOD PRESSURE NO . IRREGULAR HEART BEAT PALPITATIONS . RESPIRATORY: HAVE YOU BEEN SICK IN THE PAST WEEK? NO . FEVER NO . FLU LIKE SYMPTOMS? NO . CPAP NO . BYPAP NO . ASTHMA YES . EMPHYSEMA NO . CHRONIC LUNG DISEASES NO . SHORTNESS OF BREATH ON EXERTION NO . DO YOU USE ANY TYPE OF TOBACCO (SMOKE, SMOKELESS, CHEW)? NO . COUGH NO . SNORING NO . INTEGUMENTARY: DO YOU HAVE ANY RASHES OR OPEN SORES? NO . ALLERGIC/IMMUNO: ARE YOU ALLERGIC TO SHELLFISH OR IV DYE? NO . ANY NEW ALLERGIES? NO . PSYCHIATRIC: DO YOU HAVE THOUGHTS OF HURTING YOURSELF OR SOMEONE ELSE? NO . ARE YOU ABUSED, NEGLECTED, OR IN AN UNSAFE ENVIRONMENT? NO . ENDOCRINOLOGY: ARE YOU DIABETIC? NO . THYROID DISORDER NO . OTHER: DO YOU NEED ANY PRESCRIPTIONS? NO . IF YES, PLEASE LIST: ____ . ANY NEW PROBLEMS WITH YOUR MEDICATIONS? NO . WHEN DID YOU LAST EAT? ____ . WHEN DID YOU LAST DRINK? ____ . WHAT DID YOU LAST DRINK? ____ . NAME OF PERSON DRIVING YOU HOME? ____ . DO YOU HAVE ANY OTHER QUESTIONS OR CONCERNS NO . UROLOGY: RECURRENT URINARY TRACT INFECTION (UTI) X 2 SINCE APRIL . GENERAL HX KIDNEY STONES, LAST 7 YEARS AGO. . VITAL SIGNS WT 118.0 LBS, HT 61 IN, BMI 22.29 INDEX, BP 112/60 MM HG, HR 82 /MIN, RR 16 /MIN, TEMP 98.2 F, OXYGEN SAT % 97%, SAFE IN ENV? (Y/N) YES, NA INITIALS MP 1322, REVIEWED BY: ANGEL. EXAMINATION GENERAL EXAMINATION: GENERAL APPEARANCE:ANXIOUS, WELL GROOMED. PSYCHALERT , ORIENTED X 3 , APPROPRIATE MOOD AND AFFECT . HEENT:NORMOCEPHALIC, NO LYMPHADENOPATHY, NO THYROMEGLY. LUNGS:CLEAR TO AUSCULTATION BILATERALLY, NO WHEEZES, RALES OR RHONCHI. HEART:HEART RATE REGULAR, NORMAL S1S2, NO MURMURS, CLICK OR RUBS. ABDOMEN:WELL HEALED SURGICAL INCISION OVER SYMPHYSIS PUBIS. EXQUISITE TENDERNESS OVER RIGHT ILIOINGUINAL REGION WITH RADIATION OVER PAIN OVER RIGHT ANTER THIGH. NO TENDERNESS OVER LUMBAR SPINOUS PROCESSES OR SACRAL ILIAC JOINTS. . MUSCULOSKELETAL:MUSCLE STRENGTH TESTING 5/5 BILATERAL LOWER EXTREMITIES. POSTURE UPRIGHT. SLOW TO RISE TO STANDING POSITION. . SKIN:WARM, DRY, NO RASHES, NO LESIONS. NEUROLOGIC EXAM:PATCHY DYSESTHESIA OVER RIGHT GROIN AND MEDIAL THIGH. 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 PREVENTIVE MEDICINE PAIN CLINIC TEACHING: PROCEDURE TEACHING PRE-PROCEDURE TEACHING DONE AND QUESTIONS ANSWERED. PATIENT VERBALIZES UNDERSTANDING.. PROCEDURE CODES FA211 ESTABILISHED PATIENT [facility] CHARGE DISPOSITION & COMMUNICATION FOLLOW UP AFTER INJECTION (REASON: CHECK AUTH ILIOINGUINAL NERVE BLOCK) ELECTRONICALLY SIGNED BY YUN SINGH ON 11/25/2016 AT 10:00 AM EDT DISCLAIMER : THIS IS A VISIT SUMMARY EXTRACTED FROM THE [employer] CHART. IT IS NOT A COPY OF THE [employer] PROGRESS NOTE. DEBBIE
== END ==
LOC: M PAIN 13:15
PROVIDERS: ATTEND Nurse Practitioner Family
DX: G89.29 Other chronic pain (principal); G57.91 Unspecified mononeuropathy of right lower limb; J45.909 Unspecified asthma, uncomplicated; G40.909 Epilepsy, unspecified, not intractable, without status epilepticus; F41.9 Anxiety disorder, unspecified; Z79.899 Other long term (current) drug therapy; Z88.0 Allergy status to penicillin

== ENCOUNTER → 2016-12-10 | Outpatient (CLI) | payer OTHER ==
[2016-12-10 11:00] LABS: BASO % 0.3 % (0.0-1.0); EOS # 0.2 K/mm3 (0.0-0.50); EOS % 4.1 % (0.0-3.0); LARGE UNSTAINED CELL # 0.1 K/mm3 (0.0-0.4); LARGE UNSTAINED CELL % 1.4 % (0.0-4.0); LYMPH # 1.3 K/mm3 (1.5-6.5); LYMPH % 30.4 % (24.0-44.0); MEAN CORPUSCULAR HEMOGLOBIN 29.1 pg (27.0-33.0); MEAN CORPUSCULAR HGB CONC 35.1 g/dl (32.0-36.5); MONO # 0.1 K/mm3 (0.0-0.8); MONO % 3.1 % (0.0-5.0); NEUTROPHILS # 2.6 K/mm3 (1.8-7.7); NEUTROPHILS % 60.7 % (36.0-66.0); PLATELET COUNT, AUTOMATED 212 k/mm3 (150-450); RED CELL DISTRIBUTION WIDTH 13.2 % (11.5-14.5); WHITE BLOOD COUNT 4.3 K/mm3 (4.0-10.0)
[2016-12-10 11:30] LABS: ALBUMIN 3.9 GM/DL (3.2-5.2); ALKALINE PHOSPHATASE 79 U/L (45-117); ALT/SGPT 19 U/L (12-78); ANION GAP 9 MEQ/L (8-16); AST/SGOT 11 U/L (15-37); BILIRUBIN,TOTAL 0.4 MG/DL (0.2-1.0); BLOOD UREA NITROGEN 12 MG/DL (7-18); CALCIUM LEVEL 8.5 MG/DL (8.5-10.1); CARBON DIOXIDE LEVEL 26 MEQ/L (21-32); CHLORIDE LEVEL 105 MEQ/L (98-107); GLOMERULAR FILTRATION RATE > 60.0 (>60); GLUCOSE, FASTING 87 MG/DL (70-105); SODIUM LEVEL 140 MEQ/L (136-145); TOTAL PROTEIN 6.9 GM/DL (6.4-8.2)
== END ==
LOC: M LAB 10:29
PROVIDERS: ATTEND Family Medicine
DX: H81.10 Benign paroxysmal vertigo, unspecified ear (principal)

== ENCOUNTER → 2017-01-04 | Outpatient (CLI) | payer OTHER ==
[~2017-01-04] MED LIST changes: +BUPIVACAINE HCL 0.25% 10 ML VIAL As Ordered ONE; +BUPIVACAINE HCL 0.25% 30 ML VIAL As Ordered ONE; +TRIAMCINOLONE ACETONIDE SUSP 40 MG/ML VIAL (J3301) As Ordered ONE; +diazePAM 5 MG TAB As Ordered ONE; +diphenhydrAMINE 25 MG CAP As Ordered ONE; +oxyCODONE 5MG TAB As Ordered ONE
--- NOTE | 2017-01-11 00:10 | ECWPNPC ---
PATIENT NAME: MAYLIN BELTRAN : 1995 GENDER: FEMALE VISIT DATE: 01/04/2017 DISCHARGE DATE: 01/04/17 1421 VISIT LOCKED DATE TIME: PHYSICIAN: JANET MAGANA RESOURCE: JANET MAGANA REASON FOR APPOINTMENT 1. ILLIOINGUINAL NERVE BLOCK HISTORY OF PRESENT ILLNESS HISTORY OF PRESENT ILLNESS: PAIN THE PATIENT DESCRIBES THE PAIN... FALL RISK SCREENING: SCREENING :NO FALLS IN THE PAST YEAR CURRENT MEDICATIONS TAKING XANAX 1 MG TABLET 1 TABLET ORALLY ONCE A DAY NEEDED, NOTES: 01/04/17 0930 TAKING AMBIEN 5 MG TABLET 1 TABLET AT BEDTIME ORALLY ONCE A DAY, NOTES: 01/03/17 2200 NOT-TAKING CIPRO 250 MG TABLET 1 TABLET ORALLY EVERY 12 HRS NOT-TAKING EC-NAPROSYN 375 MG TABLET DELAYED RELEASE 1 TABLET ORALLY TWICE A DAY MEDICATION LIST REVIEWED AND RECONCILED WITH THE PATIENT PAST MEDICAL HISTORY PALPITATIONS ASTHMA KIDNEY STONES KIDNEY INFECTIONS EPILEPSEY ANXIETY ALLERGIES PENICILLIN (FOR ALLERGIES USE ONLY): HIVES: ALLERGY AMOXICILLIN: HIVES: ALLERGY KEFLEX: HIVES: ALLERGY REVIEW OF SYSTEMS REVIEWED BY: PROVIDER: . CONSTITUTIONAL: ANY CHANGE IN YOUR MEDICAL CONDITION? NO . CHILLS NO . FEVER NO . INFECTION: DO YOU HAVE NEW INFECTIONS? NO . DO YOU HAVE HISTORY OF MRSA? NO . MUSCULOSKELETAL: ANY NEW PATTERNS OF PAIN OR NUMBNESS? NO . GASTROENTEROLOGY: ANY NEW CHANGE IN BOWEL CONTROL? NO . GENITOURINARY: ANY NEW CHANGE IN BLADDER CONTROL? NO . IS THERE A CHANCE YOU COULD BE ? NO . HEMATOLOGY/LYMPH: DO YOU TAKE ANY BLOOD THINNERS? (FOR EXAMPLE- COUMADIN, PLAVIX, AGGRENOX, PLATEL, PRADAXA, OR XARELTO) NO . WHEN WAS YOUR LAST DOSE? DATE: TIME: . NEUROLOGY: HAVE YOU FALLEN IN THE PAST 6 MONTHS? NO . ANY NEW EXTREMITY NUMBNESS OR WEAKNESS? NO . CARDIOLOGY: DO YOU HAVE A PACEMAKER OR DEFIBRILLATOR? NO . RESPIRATORY: HAVE YOU BEEN SICK IN THE PAST WEEK? NO . FEVER NO . FLU LIKE SYMPTOMS? NO . COUGH NO . INTEGUMENTARY: DO YOU HAVE ANY RASHES OR OPEN SORES? NO . ALLERGIC/IMMUNO: ARE YOU ALLERGIC TO SHELLFISH OR IV DYE? NO . ANY NEW ALLERGIES? NO . PSYCHIATRIC: DO YOU HAVE THOUGHTS OF HURTING YOURSELF OR SOMEONE ELSE? NO . ARE YOU ABUSED, NEGLECTED, OR IN AN UNSAFE ENVIRONMENT? NO . ENDOCRINOLOGY: ARE YOU DIABETIC? NO . OTHER: DO YOU NEED ANY PRESCRIPTIONS? NO . IF YES, PLEASE LIST: ____ . ANY NEW PROBLEMS WITH YOUR MEDICATIONS? NO . WHEN DID YOU LAST EAT? ____01/03/17 2000 . WHEN DID YOU LAST DRINK? ____01/04/17 0900 . WHAT DID YOU LAST DRINK? ____WATER . NAME OF PERSON DRIVING YOU HOME? ____[facility] . DO YOU HAVE ANY OTHER QUESTIONS OR CONCERNS NO . VITAL SIGNS WT 114 LBS, HT 61 IN, BMI 21.54 INDEX, BP 113/73 MM HG, HR 96 /MIN, RR 16 /MIN, TEMP 98.9 F, OXYGEN SAT % 95%, SAFE IN ENV? 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 I REVIEWED THE CHART AND DISCUSSED THE CASE WITH THE PATIENT. AFTER DISCUSSING RISK, ALTERNATIVES AND BENEFITS WE HAVE AGREED ON PROCEEDING WITH THE BLOCK TODAY. THE PATIENT AGREES.PROCEDURE NOTE: AFTER CONSENT WAS SIGNED THE PATIENT WAS TAKEN TO THE PROCEDURE ROOM AND PLACE IN THE SUPINE POSITION. THE RIGHT INGUINAL AREA WAS CLEAN WITH CHLORAPREP SOLUTION AND DRAPED ASEPTICALLY. THE PROCEDURE WAS DONE UNDER STERILE STANDARD TECHNIQUES. THE RIGHT SUPERIOR ANTERIOR ILIAC SPINE WAS PALPATED. THE ENTRY POINT WAS SELECTED 1 INCH MEDIAL AND CAUDAL. THEN USING A NERVE STIMULATOR APPROPRIATE STIMULATION OF THE NERVE WAS INDUCED PER PATIENTS FEEDBACK FIRST AT 2.0 VOLTS AND THEN AT 0.8 VOLTS. THERE WAS NO EVIDENCE OF BLOOD, PARESTHESIA OR VISCERAL PUNCTURE. THEN A SOLUTION OF 15 CC OF BUPIVACAINE 0.125% AND KENALOG 40 MGS WAS INJECTED SLOWLY APPROXIMATELY 0.5 INCHES DEEP AND WITH THE ASSISTANCE OF THE NERVE STIMULATOR DESCRIBED ABOVE. THE PATIENT TOLERATES THE PROCEDURE WITHOUT COMPLICATIONS AND WAS SENT TO THE RECOVERY ROOM. POST-PROCEDURE NOTE: I WILL SEE THE PATIENT IN A FOLLOW UP IN THE NEXT FEW WEEKS. WE ARE LOOKING FOR LONG LASTING PAIN RELIEVE WITH THIS INTERVENTION. INSTRUCTIONS WERE GIVEN QUESTIONS WERE ANSWERED AND THE PATIENT REPORTS UNDERSTANDING AND AGREES. I, TONI SUNSHINE, DOCUMENTED THE ABOVE INFORMATION ACTING A SCRIBE FOR DR. MAGANA. I HAVE REVIEWED THE ABOVE DOCUMENT, WRITTEN BY TONI LÓPEZIBJennifer AND I VERIFY THAT IT IS ACCURATE. PROCEDURE CODES 50587 N BLOCK INJ ILIO-ING/HYPOGI, MODIFIERS: RT 6045F RADXPS IN END [id number] PXD DISPOSITION & COMMUNICATION FOLLOW UP 3 WEEKS ELECTRONICALLY SIGNED BY JANET MAGANA MD ON 01/10/2017 AT 09:19 PM EDT DISCLAIMER : THIS IS A VISIT SUMMARY EXTRACTED FROM THE [employer] CHART. IT IS NOT A COPY OF THE [employer] PROGRESS NOTE. MTDD
== END ==
LOC: M PAIN 11:30
PROVIDERS: ATTEND Anesthesiology
DX: G57.91 Unspecified mononeuropathy of right lower limb (principal); Z79.899 Other long term (current) drug therapy; Z88.0 Allergy status to penicillin; Z88.1 Allergy status to other antibiotic agents
CPT/HCPCS: 64425; J3301

== ENCOUNTER → 2017-01-18 | Outpatient (CLI) | payer OTHER ==
[~2017-01-18] MED LIST changes: -BUPIVACAINE HCL 0.25% 10 ML VIAL As Ordered ONE; -BUPIVACAINE HCL 0.25% 30 ML VIAL As Ordered ONE; -TRIAMCINOLONE ACETONIDE SUSP 40 MG/ML VIAL (J3301) As Ordered ONE; -diazePAM 5 MG TAB As Ordered ONE; -diphenhydrAMINE 25 MG CAP As Ordered ONE; -oxyCODONE 5MG TAB As Ordered ONE
[2017-01-18 12:55] LABS: FOLATE 18.4 NG/ML
== END ==
LOC: M LAB 11:02
PROVIDERS: ATTEND Family Medicine
DX: R20.9 Unspecified disturbances of skin sensation (principal)

== ENCOUNTER → 2017-01-28 | Outpatient (CLI) | payer OTHER ==
--- NOTE | 2017-02-28 00:41 | ECWPNPC ---
PATIENT NAME: MAYLIN BELTRAN : 1995 GENDER: FEMALE VISIT DATE: 01/28/2017 DISCHARGE DATE: 01/28/17 1439 VISIT LOCKED DATE TIME: PHYSICIAN: DASH SCALES RESOURCE: DASH SCALES REASON FOR APPOINTMENT 1. POST NERVE BLOCK HISTORY OF PRESENT ILLNESS HISTORY OF PRESENT ILLNESS: PAIN THE PATIENT DESCRIBES THE PAIN... FALL RISK SCREENING: SCREENING :NO FALLS IN THE PAST YEAR TODAY'S VISIT: NOTES: S/P RIGHT ILIOINGUINAL NERVE BLOCK COMPLETED ON 01/05/17. WAS QUITE SORE AFTER INJECTION BUT THINGS HAVE SETTLED DOWN. PAIN LEVEL PRIOR 11/11 - AND TODAY IT IS 07/12 - MOSTLY TENDER. . CURRENT MEDICATIONS TAKING XANAX 1 MG TABLET 1 TABLET ORALLY ONCE A DAY NEEDED TAKING PROAIR HFA 108 (90 BASE) MCG/ACT AEROSOL SOLUTION 2 PUFFS NEEDED INHALATION QID PRN TAKING PREDNISONE 10 MG TABLET TAKE 5 TABS QD X 2 DAYS, 4 TABS QD X 2 DAYS, 3 TABS QD X 2 DAYS, 2 TABS QD X 2 DAYS, 1 TAB QD X 2 DA ORALLY DAILY DISCONTINUED ZITHROMAX 250 MG TABLET 2 TABLETS ON THE FIRST DAY, THEN 1 TABLET DAILY FOR 4 DAYS ORALLY ONCE A DAY MEDICATION LIST REVIEWED AND RECONCILED WITH THE PATIENT PAST MEDICAL HISTORY PALPITATIONS ASTHMA KIDNEY STONES KIDNEY INFECTIONS EPILEPSEY ANXIETY ALLERGIES PENICILLIN (FOR ALLERGIES USE ONLY): HIVES: ALLERGY AMOXICILLIN: HIVES: ALLERGY KEFLEX: HIVES: ALLERGY SOCIAL HISTORY GENERAL: TOBACCO USE ARE YOU A:NONSMOKER RECREATIONAL DRUG USE DRUG USE?NO OCCUPATION: UNEMPLOYED. MARITAL STATUS: . RESTORATIONISM [id number] NONE LANGUAGE LANGUAGES SPOKEN:GERMAN LEARNING BARRIERS / SPECIAL NEEDS BARRIERS TO LEARNING?NO HEARING IMPAIRED?NO VISION IMPAIRED?NO COGNITIVELY IMPAIRED?NO READINESS TO LEARN?YES LEARNING PREFERENCES?NO LEARNING CAPABILITIES PRESENT?YES EMOTIONAL BARRIERS?NO SPECIAL DEVICES?NO QUALITY TECH NEEDED?NO PAIN CLINIC PFS, CLERGY, PUBLIC HEALTH REFERRALS PFS REFERRAL NEEDED?NO CLERGY REFERRAL NEEDED?NO PUBLIC HEALTH REFERRAL NEEDED?NO WAS THE PROVIDER NOTIFIED OF ANY PERTINENT INFO?NO HAS THE PATIENT BEEN EDUCATED REGARDING HIS/HER PLAN OF CARE?YES HAS THE PATIENT BEEN EDUCATED REGARDING PAIN, THE RISK FOR PAIN, THE IMPORTANCE OF EFFECTIVE PAIN MANAGEMENT, AND THE PAIN ASSESSMENT PROCESS?YES PATIENT: ____. ADVANCE DIRECTIVES HEALTH CARE PROXY?NO WOULD YOU LIKE MORE INFORMATION?NO DO YOU HAVE A DNR?NO WOULD YOU LIKE MORE INFORMATION?NO LIVING WILL?NO WOULD YOU LIKE MORE INFORMATION?NO POWER OF OPERATIONS SCHEDULER?NO WOULD YOU LIKE MORE INFORMATION?NO REVIEW OF SYSTEMS REVIEWED BY: PROVIDER: DASH LONG . CONSTITUTIONAL: ANY CHANGE IN YOUR MEDICAL CONDITION? NO . CHILLS NO . FEVER NO . INFECTION: DO YOU HAVE NEW INFECTIONS? NO . DO YOU HAVE HISTORY OF MRSA? NO . MUSCULOSKELETAL: ANY NEW PATTERNS OF PAIN OR NUMBNESS? NO . GASTROENTEROLOGY: ANY NEW CHANGE IN BOWEL CONTROL? NO . GENITOURINARY: ANY NEW CHANGE IN BLADDER CONTROL? NO . IS THERE A CHANCE YOU COULD BE ? NO . HEMATOLOGY/LYMPH: DO YOU TAKE ANY BLOOD THINNERS? (FOR EXAMPLE- COUMADIN, PLAVIX, AGGRENOX, PLATEL, PRADAXA, OR XARELTO) NO . WHEN WAS YOUR LAST DOSE? DATE: TIME: . NEUROLOGY: HAVE YOU FALLEN IN THE PAST 6 MONTHS? YES . ANY NEW EXTREMITY NUMBNESS OR WEAKNESS? NO . CARDIOLOGY: DO YOU HAVE A PACEMAKER OR DEFIBRILLATOR? NO . RESPIRATORY: HAVE YOU BEEN SICK IN THE PAST WEEK? YES, A COLD . FEVER NO . FLU LIKE SYMPTOMS? NO . COUGH YES . INTEGUMENTARY: DO YOU HAVE ANY RASHES OR OPEN SORES? NO . ALLERGIC/IMMUNO: ARE YOU ALLERGIC TO SHELLFISH OR IV DYE? NO . ANY NEW ALLERGIES? NO . PSYCHIATRIC: DO YOU HAVE THOUGHTS OF HURTING YOURSELF OR SOMEONE ELSE? NO . ARE YOU ABUSED, NEGLECTED, OR IN AN UNSAFE ENVIRONMENT? NO . ENDOCRINOLOGY: ARE YOU DIABETIC? NO . OTHER: DO YOU NEED ANY PRESCRIPTIONS? NO . IF YES, PLEASE LIST: ____ . ANY NEW PROBLEMS WITH YOUR MEDICATIONS? NO . WHEN DID YOU LAST EAT? ____ . WHEN DID YOU LAST DRINK? ____ . WHAT DID YOU LAST DRINK? ____ . NAME OF PERSON DRIVING YOU HOME? ____ . DO YOU HAVE ANY OTHER QUESTIONS OR CONCERNS NO . VITAL SIGNS WT 115 LBS, HT 61 IN, BMI 21.73 INDEX, BP 94/59 MM HG, HR 79 /MIN, RR 16 /MIN, TEMP 98.5 F, OXYGEN SAT % 97%, NA INITIALS SC 1415, REVIEWED BY: CM. EXAMINATION GENERAL EXAMINATION: PSYCHALERT , ORIENTED X 3 , APPROPRIATE MOOD AND AFFECT . LUNGS:CLEAR TO AUSCULTATION BILATERALLY, NO WHEEZES, RALES OR RHONCHI. HEART:HEART RATE REGULAR, NORMAL S1S2, NO MURMURS, CLICK OR RUBS. MUSCULOSKELETAL:MUSCLE STRENGTH TESTING 5/5 BILATERAL LOWER EXTREMITIES. POSTURE UPRIGHT. SLOW TO RISE TO STANDING POSITION. MILD TENDERNESS OVER LEFT FLANK AND SACRAL ILIAC JOINT. SKIN:WARM, DRY, NO RASHES, NO LESIONS. NEUROLOGIC EXAM:PATCHY DYSESTHESIA OVER RIGHT GROIN AND MEDIAL THIGH. 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 PROCEDURE CODES FA211 ESTABILISHED PATIENT [facility] CHARGE DISPOSITION & COMMUNICATION FOLLOW UP 2 MONTHS (REASON: GROIN PAIN) ELECTRONICALLY SIGNED BY YUN SINGH ON 02/27/2017 AT 09:14 PM EST DISCLAIMER : THIS IS A VISIT SUMMARY EXTRACTED FROM THE [employer] CHART. IT IS NOT A COPY OF THE [employer] PROGRESS NOTE. DEBBIE
== END ==
LOC: M PAIN 13:45
PROVIDERS: ATTEND Nurse Practitioner Family
DX: G57.91 Unspecified mononeuropathy of right lower limb (principal); Z79.899 Other long term (current) drug therapy; J45.909 Unspecified asthma, uncomplicated; Z88.0 Allergy status to penicillin; Z88.1 Allergy status to other antibiotic agents